=== PATIENT | male | born 1965 | race Caucasian/White ===

== ENCOUNTER 2023-10-04 18:57 | Emergency (ER) | payer BC, SELFPAY ==
[2023-10-04 19:02] VITALS: BP 190/80; PULSE 90; O2SAT 97
[2023-10-04 19:20] VITALS: BP 136/73; PULSE 98; RESP 16; TEMP 38.4; O2SAT 98; BMI 34.3
--- NOTE | 2023-10-04 19:22 | ED.DENTAL ---
HPI - Dental/Oral General Chief complaint: Dental/Oral Stated complaint: Infection after tooth removal Related Data Allergies Allergy/AdvReac Type Severity Reaction Status Date / Time No Known Allergies Allergy Verified 10/04/23 19:24 [facility] Social History Social History Advance Directives: No Advance Directives Information Provided: No Do you have a plan to hurt others: No Plan Physical Exam Vital Signs: Vital Signs: Last Vital Signs Temp 101.2 F H 10/04/23 19:20 Pulse 98 10/04/23 19:20 Resp 16 10/04/23 19:20 BP 136/73 10/04/23 19:20 Pulse Ox 98 10/04/23 19:20 O2 Del Method Room Air 10/04/23 19:20 BMI result Body Mass Index 34.3 Course Course Course Narrative: This is a Rapid Medical Examination (RME) performed by Phyllis Novak PA-C in triage. Full HPI, ROS, assessment and treatment plan per primary provider in the Main ED. 58 male BIBA eval of infected tooth. reports known abscessed tooth to left lower. had the tooth extracted today. discharged home w/o antibiotics. patient states prior to extraction he was febrile. upon being discharged home, fever has continued. EMS notes temp 100 en route. given 650 of tylenol [employer]. + temp 101.2 in triage. coagulated blood noted to extraction site. no active bleeding. no visible abscess or purulent discharge. Plan: basic labs ordered Reevaluation(s) Reevaluation #1: Patient left the ED without completing treatment. Medical Decision Making Lab Data 10/04/23 19:41 10/04/23 19:41 Labs: Lab Results 10/04/23 10/04/23 Range/Units 19:41 20:19 WBC 9.6 (4.8-10.8) X10*3/uL RBC 4.71 (4.60-5.80) X10*6/uL Hgb 16.0 (14.0-18.0) g/dl Hct 43.9 (42.0-52.0) % MCV 93.2 (80.0-98.0) fL MCH 34.0 H (27.0-33.0) pg MCHC 36.4 H (31.0-36.0) g/dl RDW 13.0 (11.0-16.0) % Plt Count 133 L (160-400) X10*3/uL MPV 9.5 (9.4-12.4) fL Immature Gran % (Auto) 0.3 (0.0-0.4) % Neut % (Auto) 86.0 H (45-73) % Lymph % (Auto) 6.1 L (20-40) % Spink % (Auto) 7.1 (2-11) % Eos % (Auto) 0.1 (0-4) % Baso % (Auto) 0.4 (0-2) % Lymph # (Auto) 0.6 L (1.2-4.9) X10*3/uL Spink # (Auto) 0.7 (0.1-1.2) X10*3/uL Eos # (Auto) 0.0 (0.0-0.4) X10*3/uL Baso # (Auto) 0.0 (0.0-0.2) X10*3/uL Abs Immat Gran (auto) 0.03 (0.00-0.03) X10*3/uL Absolute Neuts (auto) 8.2 (2.0-8.3) x10*3/uL Absolute Nucleated RBC 0.000 (0.0-0.012) X10*3/uL Nucleated RBC % (auto) 0.0 (0.0-0.2) /100WBC Sodium 138 (135-145) mmol/L Potassium 3.8 (3.3-5.1) mmol/L Chloride 105 (96-108) mmol/L Carbon Dioxide 21 L (22-29) mmol/L Anion Gap 16 (12-20) BUN 18 H (9-16) mg/dL Creatinine 0.85 (0.5-1.4) mg/dL Estim Creat Clear Calc 114.0 Estimated GFR > 60 Random Glucose 154 H (60-115) mg/dL Calcium 9.1 (8.4-10.2) mg/dL Magnesium 1.8 (1.6-2.6) mg/dL Total Bilirubin 0.5 (0.0-1.0) mg/dL AST 23 (5-37) U/L ALT 34 (0-40) U/L Alkaline Phosphatase 92 (39-117) U/L Total Protein 7.1 (6.5-8.0) g/dL Albumin 4.1 (3.5-5.0) g/dL Influenza Type A (PCR) NEGATIVE (Negative) Influenza Type B (PCR) NEGATIVE (Negative) RSV RNA Qual (PCR) NEGATIVE (Negative) SARS-CoV-2 RNA (RT-PCR) NEGATIVE (Negative) Discharge Plan Discharge Clinical Impression: Toothache, Dental caries Patient Disposition: Left W/O Completing Treatment Discharge Date/Time: 10/04/23 21:38
[2023-10-04 19:46] LABS: MANUAL DIFF FLAG NO
[2023-10-04 19:48] LABS: Basophils Percent Auto 0.4 % (0-2); Eosinophils Percent Auto 0.1 % (0-4); Hematocrit 43.9 % (42.0-52.0); Imm Gran Abs Auto 0.03 X10*3/uL (0.00-0.03); Imm Gran Pct Auto 0.3 % (0.0-0.4); Lymphocytes Absolute Auto 0.6 X10*3/uL (1.2-4.9); Lymphocytes Percent Auto 6.1 % (20-40); Mean Corpuscular HGB Conc 36.4 g/dl (31.0-36.0); Mean Corpuscular Volume 93.2 fL (80.0-98.0); Mean Platelet Volume 9.5 fL (9.4-12.4); Monocytes Absolute Auto 0.7 X10*3/uL (0.1-1.2); Monocytes Percent Auto 7.1 % (2-11); Neutrophils Absolute Auto 8.2 x10*3/uL (2.0-8.3); Platelet Count 133 X10*3/uL (160-400); Red Blood Count 4.71 X10*6/uL (4.60-5.80); White Blood Count 9.6 X10*3/uL (4.8-10.8)
[2023-10-04 20:02] LABS: Alanine Aminotransferase 34 U/L (0-40); Albumin Level 4.1 g/dL (3.5-5.0); Alkaline Phosphatase 92 U/L (39-117); Anion Gap 16 (12-20); Aspartate Amino Transferase 23 U/L (5-37); Bilirubin Total 0.5 mg/dL (0.0-1.0); Blood Urea Nitrogen 18 mg/dL (9-16); Calcium 9.1 mg/dL (8.4-10.2); Carbon Dioxide 21 mmol/L (22-29); Chloride 105 mmol/L (96-108); Estimated Glomerular Filt Rate > 60; Glucose Random 154 mg/dL (60-115); Magnesium 1.8 mg/dL (1.6-2.6); Potassium 3.8 mmol/L (3.3-5.1); Sodium 138 mmol/L (135-145); Total Protein 7.1 g/dL (6.5-8.0)
[2023-10-04 21:01] LABS: Influenza A PCR NEGATIVE (Negative); Influenza B PCR NEGATIVE (Negative); Resp Syncy Virus RNA Qual PCR NEGATIVE (Negative); SARS COV2 PCR INHOUSE NEGATIVE (Negative)
--- NOTE | 2023-10-04 21:37 | PC.NURSE ---
RN to [facility] to call patient back with no answer; per registration the patient left
== END 2023-10-04 21:38 | disposition left against medical advice (07) ==
PROVIDERS: Physician Assistant Medical; Emergency Provider Emergency Medicine
DX: R50.9 Fever, unspecified (principal); K08.89 Other specified disorders of teeth and supporting structures; K02.9 Dental caries, unspecified; Z03.818 Encounter for observation for suspected exposure to other biological agents ruled out
CPT/HCPCS: 0241U; 36415; 80053; 83735; 85025; 99281

== ENCOUNTER 2024-07-12 12:20 | Outpatient (REF) | payer BC, SELFPAY | END 2024-07-12 12:21 | disposition home or self-care (01) | LOC: HO.HOSX 12:20 | PROVIDERS: Visit Provider Physician Assistant | DX: Z13.89 Encounter for screening for other disorder (principal) ==